=== PATIENT | female | born 1950 | race Caucasian/White ===

== ENCOUNTER 2021-12-23 12:30 | Emergency (ER) | payer MEDICARE ==
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
[2021-12-23] MEDS ORDERED: Zofran 4 MG/2 ML VIAL IV ONE (12:58)
[2021-12-23] MEDS ORDERED: MORPHINE SULFATE 4 MG INJ IV ONE (12:58)
[2021-12-23] MEDS ORDERED: MORPHINE SULFATE 4 MG INJ ONE (13:26)
[2021-12-23] MEDS ORDERED: Zofran 4 MG/2 ML VIAL ONE (13:26)
[2021-12-23 13:41] LABS: Absolute Neutrophil Ct (ANC) 4.68 x10^3/uL (1.4-6.9); Basophil (Absolute #) 0.02 x10^3/uL (0-0.4); Eosinophil % 0.3 % (0.00-5.0); Eosinophil (Absolute #) 0.02 x10^3/uL (0-0.5); Hematocrit 41.8 % (35-47); Hemoglobin 13.7 g/dL (12.0-16.0); Lymphocyte (Absolute #) 1.45 x10^3/uL (1.0-4.6); Lymphocytes % 21.9 % (24.0-44.0); Mean Cell Volume 84.8 fL (78-100); Mean Corpuscular Hemoglobin 27.8 pg (26-32); Mean Corpuscular Hgb Concent. 32.8 g/dL (32-36); Mean Platelet Volume 8.7 fL (7.5-11.0); Monocyte (Absolute #) 0.41 x10^3/uL (0.0-1.3); Monocytes % 6.2 % (0.0-12.0); Neutrophil % 70.8 % (36.0-66.0); Platelet Count 205 x10^3/uL (150-450); Red Blood Count 4.93 x10^6/uL (4.1-5.4); Red Cell Distribution Width 13.2 % (11.5-14.0); White Blood Count 6.6 x10^3/uL (4.0-10.5)
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
[2021-12-23 14:07] LABS: ALBUMIN 4.3 g/dL (3.5-5.0); ALKALINE PHOSPHATASE 155 U/L (38-126); AMYLASE 71 U/L (30-110); ANION GAP 11.2 MEQ/L (5-15); BLOOD UREA NITROGEN 16 mg/dL (7-17); CHLORIDE 105 mmol/L (98-107); Calcium 10.8 mg/dL (8.4-10.2); Carbon Dioxide 27 mmol/L (22-30); Creatinine 1 0.76 mg/dL (0.52-1.04); EST GLOMERULAR FILTRATION RATE > 60.0 ML/MIN; Glucose 113 mg/dL (74-106); LIPASE 47 U/L (23-300); Potassium 4.2 mmol/L (3.5-5.1); SGOT/AST 20 U/L (14-36); SGPT/ALT 16 U/L (0-35); SODIUM 138 mmol/L (137-145); Total Protein 7.2 g/dL (6.3-8.2)
[2021-12-23 14:18] VITALS: PULSE 89
[2021-12-23 15:00] VITALS: BP 144/84; O2SAT 96
== END 2021-12-23 15:00 | disposition home or self-care (01) ==
LOC: ED 12:30
DX: M48.54XA Collapsed vertebra, not elsewhere classified, thoracic region, initial encounter for fracture (principal); E04.2 Nontoxic multinodular goiter; R07.9 Chest pain, unspecified; R10.9 Unspecified abdominal pain; R05.9 Cough, unspecified; Z79.891 Long term (current) use of opiate analgesic
CPT/HCPCS: 36000; 36415; 71250; 74176; 80053; 82150; 83690; 84484; 85025; 96374; 96375; 99284; J2270; J2405

== ENCOUNTER 2021-12-28 18:30 | Emergency (ER) | payer MEDICARE ==
[2021-12-28] MEDS ORDERED: MORPHINE SULFATE 4 MG INJ IV ONE (18:38)
[2021-12-28] MEDS ORDERED: MORPHINE SULFATE 4 MG INJ ONE (18:40)
--- NOTE | 2021-12-28 18:40 | ERPHSYRPT ---
- History of Present Illness Time Seen by Provider: 12/28/21 18:40 Source: patient Exam Limitations: no limitations Physician History: Patient is a 71-year-old female presents to our ED for evaluation of pain to her lower thoracic spine. Patient was in our ED approximately 5 days ago. She was worked up. Work-up revealed a T11 acute compression fracture. Patient was advised to obtain a brace however patient states she was unable to obtain her brace since then her pain has gotten somewhat worse. No neurological complaints. Patient has Percocet which she has been taking. Patient was also diagnosed with a 3.3 x 3.0 cm AAA. Patient has no abdominal pain. Physical exam reveals no pulsatile masses. Normal blood pressure. Bilateral radial pulses are palpable and equal. Bilateral dorsalis pedis pulses are palpable and equal. Patient has point tenderness at the T11 vertebrae which reproduces patient's symptoms. No chest pain. No shortness of breath. No nausea vomiting or diaphoresis. No diarrhea. No rash. Patient voices no other complaints or concerns at this time. Portions of this note were created with voice recognition technology. There may be grammatical, spelling, punctuation or sound alike errors Timing/Duration: today Severity: moderate Modifying Factors: Improves With: nothing Associated Symptoms: denies symptoms Allergies/Adverse Reactions: ibuprofen Allergy (Verified 12/28/21 18:36) Penicillins Allergy (Verified 12/28/21 18:36) Sulfa (Sulfonamide Antibiotics) Allergy (Verified 12/28/21 18:36) Home Medications: Acetaminophen [Tylenol Arthritis] 650 mg PO TID 12/23/21 [History] Hx Tetanus, Diphtheria Vaccination/Date Given: Yes Hx Influenza Vaccination/Date Given: No Hx Pneumococcal Vaccination/Date Given: No Travel Risk - Vaccine Status Have you recieved a Covid-19 vaccination: No - Review of Systems Constitutional: No Symptoms, No Fever, No Chills Eyes: No Symptoms Ears, Nose, & Throat: No Symptoms Respiratory: No Symptoms, No Cough, No Dyspnea Cardiac: No Symptoms, No Chest Pain, No Edema, No Syncope Abdominal/Gastrointestinal: No Symptoms, No Abdominal Pain, No Nausea, No Vomiting, No Diarrhea Genitourinary Symptoms: No Symptoms, No Dysuria Musculoskeletal: No Symptoms, No Back Pain, No Neck Pain Skin: No Symptoms, No Rash Neurological: No Symptoms, No Dizziness, No Focal Weakness, No Sensory Changes Psychological: No Symptoms Endocrine: No Symptoms Hematologic/Lymphatic: No Symptoms Immunological/Allergic: No Symptoms All Other Systems: Reviewed and Negative - Past Medical History Pertinent Past Medical History: Yes Neurological History: Epilepsy, Seizures ENT History: Cataracts Cardiac History: No Pertinent History Respiratory History: Pneumonia Endocrine Medical History: Other Musculoskeletal History: Arthritis GI Medical History: Gallbladder Disease History: Renal Disease Psycho-Social History: Depression Female Reproductive Disorders: No Pertinent History Other Medical History: thyroid disease, unsure what the kidney disease is but used to see a director of web marketing that she no longer sees - Past Surgical History Past Surgical History: Yes Neuro Surgical History: No Pertinent History Cardiac: No Pertinent History Respiratory: No Pertinent History Gastrointestinal: Cholecystectomy Genitourinary: No Pertinent History Musculoskeletal: No Pertinent History Female Surgical History: Hysterectomy, Tubal Ligation - Social History Smoking Status: Current every day smoker How long have you smoked: 60 years Exposure to second hand smoke: Yes Drug Use: none Patient Lives Alone: No - Nursing Vital Signs Nursing Vital Signs: Initial Vital Signs Temperature 97.8 F 12/28/21 18:37 Pulse Rate 75 12/28/21 18:37 Respiratory Rate 18 12/28/21 18:37 Blood Pressure 161/86 12/28/21 18:37 O2 Sat by Pulse Oximetry 99 12/28/21 18:37 Pain Scale Pain Intensity 8 - Physical Exam General Appearance: no apparent distress, alert Eye Exam: PERRL/EOMI, eyes nml inspection Ears, Nose, Throat Exam: normal ENT inspection, TMs normal, pharynx normal, moist mucous membranes Neck Exam: normal inspection, non-tender, supple, full range of motion Respiratory Exam: normal breath sounds, lungs clear, airway intact, No respiratory distress Cardiovascular Exam: regular rate/rhythm, normal heart sounds, normal peripheral pulses Gastrointestinal/Abdomen Exam: soft, normal bowel sounds, No tenderness, No mass Back Exam: normal inspection, normal range of motion, other (Tenderness palpation at T11. This reproduces patient's symptoms. Overlying soft tissue intact. No signs of trauma.), No CVA tenderness, No vertebral tenderness Extremity Exam: normal inspection, normal range of motion, pelvis stable Neurologic Exam: alert, oriented x 3, cooperative, normal mood/affect, nml cerebellar function, nml station & gait, sensation nml, No motor deficits Skin Exam: normal color, warm, dry, No rash Lymphatic Exam: No adenopathy SpO2 Interpretation: normal SpO2: 98 O2 Delivery: Room Air - Course Nursing assessment & vital signs reviewed: Yes Ordered Tests: Medication Summary Discontinued Medications Generic Name Dose Route Start Last Admin Trade Name Jai PRN Reason Stop Dose Admin Morphine Sulfate 4 mg 12/28/21 18:38 12/28/21 18:43 Morphine Sulfate 4 Mg/Ml Injection IV 12/28/21 18:39 Not Given STAT ONE Morphine Sulfate Confirm 12/28/21 18:40 Morphine Sulfate 4 Mg/Ml Injection Administered 12/28/21 18:41 Dose 4 mg .ROUTE .STK-MED ONE Morphine Sulfate 4 mg 12/28/21 18:41 12/28/21 18:44 Morphine Sulfate 4 Mg/Ml Injection IM 12/28/21 18:42 4 mg STAT ONE Administration - Progress Progress: improved Progress Note: Patient reassessed. Pain significantly improved. No indication to repeat imaging studies. Patient will be referred to Dr. [place] spine surgeon in [place]. Patient has no neurologic complaints. No interval falls or trauma. 12/28/21 18:44 Pain significantly improved. Patient requesting discharge. Patient agrees to follow-up with orthopedic surgeon tomorrow for reevaluation. Patient has no neurological complaints or physical exam findings. Portions of this note were created with voice recognition technology. There may be grammatical, spelling, punctuation or sound alike errors 12/28/21 19:14 Counseled pt/family regarding: diagnosis, need for follow-up - Departure Departure Disposition: Home Clinical Impression: T11 vertebral fracture Condition: Stable Critical Care Time: No Referrals: KATELYNN BRADLEY PA [Primary Care Provider] - Follow up/PCP as directed Instructions: Low Back Pain in Adults Additional Instructions: Discharge/Care Plan KERRI TABARES was seen on 12/28/21 in the Emergency Room. The patient was counseled regarding Diagnosis,Lab results, Imaging studies, need for follow up and when to return to the Emergency Room. Prescriptions given: Discharge Note I have spoken with the patient and/or caregivers. I have explained the patient's condition, diagnosis and treatment plan based on the information available to me at this time. I have answered the patient's and/or caregiver's questions and addressed any concerns. The patient and/or caregivers have as good understanding of the patient's diagnosis, condition and treatment plan as can be expected at this point. The vital signs have been stable. The patient's condition is stable and appropriate for discharge from the emergency department. The patient will pursue further outpatient evaluation with the primary care physician or other designated or consulting physician as outlined in the discharge instructions. The patient and/or caregivers are agreeable to this plan of care and follow-up instructions have been explained in detail. The patient and/or caregivers have received these instruction. The patient/and or caregivers are aware that any significant change in condition or worsening of symptoms should prompt an immediate return to this or the closest emergency department or call 911.
[2021-12-28] MEDS ORDERED: MORPHINE SULFATE 4 MG INJ IM ONE (18:41)
[2021-12-28 18:43] VITALS: BP 161/86; PULSE 75
[2021-12-28 19:17] VITALS: O2SAT 98
== END 2021-12-28 19:16 | disposition home or self-care (01) ==
LOC: ED 18:30
DX: S22.089D Unspecified fracture of T11-T12 vertebra, subsequent encounter for fracture with routine healing (principal); M54.6 Pain in thoracic spine; Z72.0 Tobacco use; Z28.310 Unvaccinated for COVID-19
CPT/HCPCS: 96372; 99282; J2270

== ENCOUNTER 2022-03-05 16:40 | Emergency (ER) | payer MEDICARE ==
[2022-03-05] MEDS ORDERED: TYLENOL EXTRA STRENGTH 500 MG PO STA (17:57)
--- NOTE | 2022-03-05 18:01 | ERPHSYRPT ---
- History of Present Illness Time Seen by Provider: 03/05/22 17:01 Source: patient Exam Limitations: no limitations Patient Subjective Stated Complaint: Pt was in the back compartment of a small SUV and fell out on her back and hit the back of her head, she wears a hard wrap around back brace and so she states that her back wasn't injured but only her head Triage Nursing Assessment: Pt brought to the ER by her daughter, hypertensive, rates pain in her head as 8/10, bruising to the top of her head and some old yellow bruising as well, denies additional back pain, denies any other injuries, daughter states that it was about a five foot fall if she fell from inside the vehicle and pt doesn't remember if she was still in the vehicle or if she had gotten out and had just fallen backwards Physician History: 71 years old female with history of chronic back pain with some compression fracture T11 per daughter wearing back brace, was trying to sit on the back bumper of small SUV which she did not realize it was high enough that she could not touch her feet on the ground and lost balance, all leading to fall and hit her head. According to daughter she lost consciousness refused seconds, came back with no postictal and no seizure-like activities noticed. She has a small goose egg on the occipital parietal area and complaining of dull aching to sharp moderate headache without any difficulty movements of neck and back pain is not any worse than usual. Denies any focal numbness tingling weakness. No diffic ulty speech, visual disturbance. Denies any chest pain palpitations or shortness of breath. Occurred: just prior to arrival Reason for Fall: lost balance Injuries/Pain Location: head Loss of Consciousness: brief (seconds) Quality: sharpness Severity of Pain-Max: moderate Severity of Pain-Current: moderate Associated Symptoms (Fall): back pain, headache, No chest pain, No dizziness, No extremity injury, No lightheadedness, No nausea, No neck pain, No ringing in ears, No seizures, No shortness of breath, No slurred speech, No vomiting, No vision changes Allergies/Adverse Reactions: ibuprofen Allergy (Verified 03/05/22 17:02) Penicillins Allergy (Verified 03/05/22 17:02) Sulfa (Sulfonamide Antibiotics) Allergy (Verified 03/05/22 17:02) Home Medications: No Reportable Medications [No Reported Medications] 03/05/22 [History] Hx Tetanus, Diphtheria Vaccination/Date Given: Yes Hx Influenza Vaccination/Date Given: No Hx Pneumococcal Vaccination/Date Given: No Travel Risk - International Travel Have you traveled outside of the country in past 3 weeks: No - Coronavirus Screening Are you exhibiting any of the following symptoms?: No - Vaccine Status Have you recieved a Covid-19 vaccination: No - Review of Systems Constitutional: No Symptoms Eyes: No Symptoms Ears, Nose, & Throat: No Symptoms Respiratory: No Symptoms Cardiac: No Symptoms Abdominal/Gastrointestinal: No Symptoms Genitourinary Symptoms: No Symptoms Musculoskeletal: Back Pain, Fall Skin: No Symptoms Neurological: Headache Psychological: No Symptoms Hematologic/Lymphatic: No Symptoms Immunological/Allergic: No Symptoms - Past Medical History Pertinent Past Medical History: Yes Neurological History: Epilepsy, Seizures ENT History: Cataracts Cardiac History: No Pertinent History Respiratory History: Pneumonia Endocrine Medical History: Other Musculoskeletal History: Arthritis GI Medical History: Gallbladder Disease History: Renal Disease Psycho-Social History: Depression Female Reproductive Disorders: No Pertinent History Other Medical History: thyroid disease, unsure what the kidney disease is but used to see a steamer tender that she no longer sees - Past Surgical History Past Surgical History: Yes Neuro Surgical History: No Pertinent History Cardiac: No Pertinent History Respiratory: No Pertinent History Gastrointestinal: Cholecystectomy Genitourinary: No Pertinent History Musculoskeletal: No Pertinent History Female Surgical History: Hysterectomy, Tubal Ligation - Social History Smoking Status: Current every day smoker How long have you smoked: 60 years Exposure to second hand smoke: Yes Drug Use: none Patient Lives Alone: No - Nursing Vital Signs Nursing Vital Signs: Initial Vital Signs Temperature 97.2 F 03/05/22 16:51 Pulse Rate 98 H 03/05/22 16:51 Blood Pressure 161/83 03/05/22 16:51 O2 Sat by Pulse Oximetry 96 03/05/22 16:51 Pain Scale Pain Intensity 4 - Red Bud Coma Score Best Eye Response (Red Bud): (4) open spontaneously Best Verbal Response (Benita): (5) oriented Best Motor Response ([place]): (6) obeys commands Red Bud Total: 15 - Physical Exam General Appearance: no apparent distress, alert Head Injury: contusions, swelling, tenderness (Occipitoparietal area 3 x 2 cm goose egg with no step in deformity.) Eye Exam: PERRL/EOMI, eyes nml inspection ENT Exam: airway nml, No evidence of ENT injury Neck Exam: supple, trachea midline, full range of motion, normal alignment, normal inspection Respiratory/Chest Exam: normal breath sounds, respiratory distress, No chest tenderness Cardiovascular Exam: normal heart sounds, regular rate/rhythm Gastrointestinal Exam: soft, normal bowel sounds Back Exam: vertebral tenderness, decreased range of motion, muscle spasm, point tenderness, other (Scoliosis) Extremity Exam: normal inspection, normal range of motion Neurologic Exam: alert, oriented x 3, cooperative, mattress finisher II-XII nml as tested Skin Exam: normal color SpO2 Interpretation: normal SpO2: 96 O2 Delivery: Room Air - Course EKG Interpreted by Me: RATE ([id number]), Sinus Rhythm, NORMAL AXIS, NORMAL INTERVALS, Q-wave Ordered Tests: Active Orders 24 hr Category Date Time Status EKG-ER Only STAT Care 03/05/22 17:56 Active CERVICAL SPINE WO CONTRAST [CT] Stat Exams 03/05/22 19:55 Taken CHEST 1 VIEW (PORTABLE) Stat Exams 03/05/22 19:24 Taken HEAD WITHOUT CONTRAST [CT] Stat Exams 03/05/22 18:52 Taken LUMBAR SPINE W/O [CT] Stat Exams 03/05/22 17:11 Taken CBC W DIFF Stat Lab 03/05/22 18:25 Completed CK-Creatinine Phosphokinase Stat Lab 03/05/22 18:25 Completed CMP Stat Lab 03/05/22 18:25 Completed TROPONIN Q4H Lab 03/06/22 02:00 Ordered TROPONIN Q4H Lab 03/05/22 18:25 Completed TROPONIN Q4H Lab 03/05/22 22:00 Ordered Medication Summary Discontinued Medications Generic Name Dose Route Start Last Admin Trade Name Jai PRN Reason Stop Dose Admin Acetaminophen 500 mg 03/05/22 17:57 03/05/22 18:39 Acetaminophen 500 Mg Tablet PO 03/05/22 17:58 500 mg STAT STA Administration Acetaminophen Confirm 03/05/22 18:39 Acetaminophen 500 Mg Tablet Administered 03/05/22 18:40 Dose 500 mg .ROUTE .[facility] Lab/Rad Data: Laboratory Result Diagrams 03/05/22 18:25 03/05/22 18:25 Laboratory Results 03/05/22 03/05/22 03/05/22 Range/Units 18:25 18:25 18:25 WBC 6.7 (4.0-10.5) x10^3/uL RBC 5.14 (4.1-5.4) x10^6/uL Hgb 13.9 (12.0-16.0) g/dL Hct 43.0 (35-47) % MCV 83.7 (78-100) fL MCH 27.0 (26-32) pg MCHC 32.3 (32-36) g/dL RDW 12.6 (11.5-14.0) % Plt Count 205 (150-450) x10^3/uL MPV 9.0 (7.5-11.0) fL Gran % 58.8 (36.0-66.0) % Immature Gran % (Auto) 0.1 (0.00-0.4) % Nucleat RBC Rel Count 0.0 (0.00-0.1) % Eos # (Auto) 0.03 (0-0.5) x10^3/uL Immature Gran # (Auto) 0.01 (0.00-0.03) x10^3u/L Absolute Lymphs (auto) 2.30 (1.0-4.6) x10^3/uL Absolute Monos (auto) 0.40 (0.0-1.3) x10^3/uL Absolute Nucleated RBC 0.00 (0.00-0.01) x10^3u/L Lymphocytes % 34.3 (24.0-44.0) % Monocytes % 6.0 (0.0-12.0) % Eosinophils % 0.4 (0.00-5.0) % Basophils % 0.4 (0.0-0.4) % Absolute Granulocytes 3.94 (1.4-6.9) x10^3/uL Basophils # 0.03 (0-0.4) x10^3/uL Sodium 137 (137-145) mmol/L Potassium 3.4 L (3.5-5.1) mmol/L Chloride 104 (98-107) mmol/L Carbon Dioxide 31 H (22-30) mmol/L Anion Gap 5.2 (5-15) MEQ/L BUN 16 (7-17) mg/dL Creatinine 0.70 (0.52-1.04) mg/dL Estimated GFR > 60.0 ML/MIN Glucose 105 (74-106) mg/dL Calcium 10.2 (8.4-10.2) mg/dL Total Bilirubin 0.50 (0.2-1.3) mg/dL AST 24 (14-36) U/L ALT 17 (0-35) U/L Alkaline Phosphatase 165 H (38-126) U/L Creatine Kinase 34 (30-135) U/L Troponin I < 0.012 (0.000-0.034) ng/mL Serum Total Protein 7.0 (6.3-8.2) g/dL Albumin 3.9 (3.5-5.0) g/dL - Progress Progress: improved Progress Note: 03/05/22 20:27 She is given Tylenol for symptomatic relief. It was a mechanical fall, obtain CT head, cervical spine, lumbar spine and negative for any acute trauma related findings. Patient is essentially nonfocal neuro exam grossly. Not in any distress. Lungs bilateral clear and no acute findings on chest x-ray reviewed by me, official report is pending. No abdominal tenderness at all. EKG normal sinus rhythm with negative troponin and grossly unremarkable chemistries. It was a mechanical fall, do not think needs any further work-up and patient is stable for discharge with outpatient follow-up. Since patient has loss of consciousness, have some element of concussion, recommended staying with responsible person for next 24 to 48 hours with frequent neurochecks and outpa tient primary care follow-up. Signs symptoms of worsening needing return to ER which he seems understanding 03/05/22 20:28 Counseled pt/family regarding: lab results, diagnosis, need for follow-up, rad results - Departure Departure Disposition: Home Clinical Impression: Concussion, Scalp contusion, Fall Condition: Stable Critical Care Time: No Referrals: KATELYNN BRADLEY PA [Primary Care Provider] - Follow up/PCP as directed (In 2 days for reevaluation) Instructions: Preventing Falls in Older Adults, Head Injury Observation (DC), Concussion, Adult (DC) Additional Instructions: Take Tylenol as needed. Use cane/walker for ambulation all the time to avoid a fall. Stay with responsible person with frequent neurochecks for 24 to 48 hours. Follow head injury/concussion instructions and return to ER for any worsening. Follow-up with primary care for reevaluation early next week.
[2022-03-05 18:33] LABS: Absolute Neutrophil Ct (ANC) 3.94 x10^3/uL (1.4-6.9); Basophil (Absolute #) 0.03 x10^3/uL (0-0.4); Eosinophil % 0.4 % (0.00-5.0); Eosinophil (Absolute #) 0.03 x10^3/uL (0-0.5); Hemoglobin 13.9 g/dL (12.0-16.0); Lymphocytes % 34.3 % (24.0-44.0); Mean Cell Volume 83.7 fL (78-100); Mean Corpuscular Hgb Concent. 32.3 g/dL (32-36); Neutrophil % 58.8 % (36.0-66.0); Platelet Count 205 x10^3/uL (150-450); Red Blood Count 5.14 x10^6/uL (4.1-5.4); Red Cell Distribution Width 12.6 % (11.5-14.0); White Blood Count 6.7 x10^3/uL (4.0-10.5)
[2022-03-05] MEDS ORDERED: TYLENOL EXTRA STRENGTH 500 MG ONE (18:39)
[2022-03-05 18:52] LABS: ALBUMIN 3.9 g/dL (3.5-5.0); ALKALINE PHOSPHATASE 165 U/L (38-126); ANION GAP 5.2 MEQ/L (5-15); BLOOD UREA NITROGEN 16 mg/dL (7-17); CHLORIDE 104 mmol/L (98-107); CK-Creatinine Phosphokinase 34 U/L (30-135); Calcium 10.2 mg/dL (8.4-10.2); Carbon Dioxide 31 mmol/L (22-30); EST GLOMERULAR FILTRATION RATE > 60.0 ML/MIN; Glucose 105 mg/dL (74-106); Potassium 3.4 mmol/L (3.5-5.1); SGOT/AST 24 U/L (14-36); SGPT/ALT 17 U/L (0-35); SODIUM 137 mmol/L (137-145)
[2022-03-05 19:12] VITALS: O2SAT 96
--- NOTE | 2022-03-05 20:40 | XRAY ---
Indication: Posterior head pain following fall. Multiple contiguous axial images obtained through the head without contrast. Comparison: January 28, 2007 Again age-appropriate global atrophy. No acute intracranial hemorrhage, abnormal extra-axial fluid collection, or mass effect. Fourth ventricle is midline without hydrocephalus. Silva-white matter differentiation preserved. Bony calvarium intact.. Visualized paranasal sinuses and mastoid air cells are clear. Impression: Continued negative CT head without contrast exam. Comment: Preliminary interpretation made by [facility]. No critical discrepancy.
[2022-03-05 20:42] VITALS: BP 144/67; PULSE 82
--- NOTE | 2022-03-05 20:44 | XRAY ---
Indication: Low back pain following fall. Multiple contiguous axial images obtained through the lumbar spine. Sagittal and coronal reformatted images obtained. Comparison: CT abdomen/pelvis December 23, 2021. Osseous structures remain demineralized. T11 segment now demonstrates remote superior endplate fracture with 50-75% height loss but no spinal canal or foraminal encroachment. Stable L1-L2 and L5-S1 degenerative disc disease with vacuum disc phenomena. New T10-T12 degenerative vacuum disc phenomena. Facets are symmetric again with moderate bilateral L4-S1 degenerative facet hypertrophy. Sagittal and coronal reformatted images again demonstrates normal lumbar lordosis with stable mild dextroscoliosis. Stable L1-L2 and L5-S1 disc space narrowing. No acute compression fracture or subluxation. Visualized noncontrasted soft tissues again demonstrates moderate scattered aortoiliac calcifications with 3.3 cm distal AAA. Again incidental pulmonary emphysema, cholecystectomy clips, and splenic calcified granulomas. Impression: 1. Remote appearing T1 fracture. No acute fracture/subluxation. 2. Again osteopenia, multilevel degenerative spondylosis, dextroscoliosis, arteriosclerotic disease with distal AAA, pulmonary emphysema, and old granulomatous disease. Comment: Preliminary interpretation made by [facility]. No critical discrepancy.
--- NOTE | 2022-03-05 20:48 | XRAY ---
Indication: Status post fall. Comparison: None Portable chest hyperinflated and clear. Heart not enlarged with incidental hilar calcified nodes. Bony thorax intact with osteopenia, degenerative changes, and mild levoscoliosis. Impression: Nonacute hyperinflated chest with chronic features.
--- NOTE | 2022-03-05 20:59 | XRAY ---
Indication: Pain. Status post fall. Trauma. Multiple contiguous axial images obtained through the cervical spine. Sagittal and coronal reformatted images obtained. Comparison: None Osseous structures are demineralized. Axial images negative for acute fracture, suspicious bony lesions, or spinal canal stenosis. Minimal C4-C6 degenerative endplate spurring and mild/moderate multilevel bilateral degenerative facet hypertrophy. Sagittal and coronal reformatted images demonstrates normal alignment with C5-C6 disc space narrowing. No acute compression fracture, subluxation, or jumped facet. Normal appearing craniocervical junction. Visualized noncontrasted soft tissues demonstrates incompletely visualized marked heterogeneous thyromegaly with scattered micro-/microcalcifications. Also diffuse paraseptal pulmonary emphysema. Impression: 1. Negative acute fracture/subluxation. 2. Osteopenia and multilevel degenerative changes. 3. Incompletely visualized marked heterogeneous thyromegaly. 4. Biapical pulmonary emphysema. Comment: Preliminary interpretation made by [facility]. No critical discrepancy.
== END 2022-03-05 20:45 | disposition home or self-care (01) ==
LOC: ED 16:40
DX: S06.0X1A Concussion with loss of consciousness of 30 minutes or less, initial encounter (principal); S00.03XA Contusion of scalp, initial encounter; W17.89XA Other fall from one level to another, initial encounter; Z28.310 Unvaccinated for COVID-19; Z72.0 Tobacco use
CPT/HCPCS: 36415; 70450; 71045; 72125; 72131; 80053; 82550; 84484; 85025; 93005; 99284; A9270-GY

== ENCOUNTER 2023-03-15 19:22 | Emergency (ER) | payer MEDICARE ==
--- NOTE | 2023-03-15 19:35 | ERPHSYRPT ---
- History of Present Illness Time Seen by Provider: 03/15/23 19:35 Source: patient, family Exam Limitations: no limitations Physician History: This is a 72-year-old white female patient of Dr. Davis who tripped over her oxygen tank fell onto her left chest. She had excruciating left rib pain and was seen at [facility] emergency department that same evening on 03/12/2023. Per patient's daughter report, who provided independent, additional history secondary to the patient being hard of hearing and not recalling all of the details of the event and that evening in the emergency room, the patient has been in pain for the same level as the day she fell. Patient's room air oxygen saturation was 93%. Patient has oxygen dependent COPD but the oxygen tank ran out prior to her arriving to our emergency department. She does not appear to be in distress. Patient has a history of hypothyroidism, depression, arthritis and chronic renal disease. He has no abdominal pain. She did not suffer any extremity injury. There was not an injury to her head and neck. Occurred: days ago (3) Reason for Fall: tripped (Over an oxygen tank) Injuries/Pain Location: chest (Left lateral chest/ribs) Loss of Consciousness: no loss of consciousness Quality: sharpness, stabbing Severity of Pain-Max: moderate Severity of Pain-Current: moderate Modifying Factors: Improves With: movement Associated Symptoms (Fall): chest pain (Left lateral ribs), No extremity injury, No headache, No neck pain, No shortness of breath Allergies/Adverse Reactions: Penicillins Allergy (Severe, Verified 03/15/23 19:24) Shortness of Breath Sulfa (Sulfonamide Antibiotics) Allergy (Severe, Verified 03/15/23 19:24) Shortness of Breath ibuprofen Allergy (Intermediate, Verified 03/15/23 19:24) Hives naproxen Allergy (Intermediate, Verified 03/15/23 19:24) Hives Home Medications: Escitalopram Oxalate [Lexapro] 1 tab PO DAILY 11/26/22 [History] Levothyroxine Sodium 100 Mcg [Synthroid 100 Mcg] 1 tab PO DAILY 11/26/22 [History] calcitrioL [Calcitriol] 1 tab PO BID 11/26/22 [History] Hydrocodone/Acetaminophen [Hydrocodone-Acetamin 5-325 mg] 1 tab PO Q6HPRN PRN MDD 4 03/15/23 [History] Tiotropium Br/Olodaterol HCl [Stiolto Respimat Inhal [place]] 2 puff IH BID 03/15/23 [History] Hx Tetanus, Diphtheria Vaccination/Date Given: Yes Hx Influenza Vaccination/Date Given: No Hx Pneumococcal Vaccination/Date Given: No Travel Risk - International Travel Have you traveled outside of the country in past 3 weeks: No - Coronavirus Screening Are you exhibiting any of the following symptoms?: No Close contact with a COVID-19 positive Pt in past 14-21 Days: No - Vaccine Status Have you recieved a Covid-19 vaccination: No - Review of Systems Constitutional: No Symptoms Eyes: No Symptoms Ears, Nose, & Throat: No Symptoms Respiratory: No Symptoms Cardiac: Chest Pain (Left lateral ribs to palpation) Abdominal/Gastrointestinal: No Symptoms Genitourinary Symptoms: No Symptoms Musculoskeletal: No Symptoms Skin: No Symptoms Neurological: No Symptoms Psychological: No Symptoms Endocrine: No Symptoms Hematologic/Lymphatic: No Symptoms Immunological/Allergic: No Symptoms All Other Systems: Reviewed and Negative - Past Medical History Pertinent Past Medical History: Yes Neurological History: Epilepsy, Seizures ENT History: Cataracts Cardiac History: No Pertinent History Respiratory History: COPD, Pneumonia Endocrine Medical History: Other Musculoskeletal History: Arthritis GI Medical History: Gallbladder Disease History: Renal Disease Psycho-Social History: Anxiety, Depression Female Reproductive Disorders: No Pertinent History Other Medical History: thyroid disease - Past Surgical History Past Surgical History: Yes Neuro Surgical History: No Pertinent History Cardiac: No Pertinent History Respiratory: No Pertinent History Gastrointestinal: Cholecystectomy Genitourinary: No Pertinent History Musculoskeletal: No Pertinent History Female Surgical History: Hysterectomy, Tubal Ligation Other Surgical History: thyroidectomy - Social History Smoking Status: Former smoker How long have you smoked: 60 years Exposure to second hand smoke: Yes Drug Use: none Patient Lives Alone: No - Nursing Vital Signs Nursing Vital Signs: Initial Vital Signs Temperature 97.3 F 03/15/23 19:23 Pulse Rate 73 03/15/23 19:23 Respiratory Rate 28 H 03/15/23 19:23 Blood Pressure 140/65 03/15/23 19:23 O2 Sat by Pulse Oximetry 93 L 03/15/23 19:23 Pain Scale Pain Intensity 9 - Deshler Coma Score Best Eye Response (Deshler): (4) open spontaneously Best Verbal Response ([place]hler): (5) oriented Best Motor Response ([place]hler): (6) obeys commands Benita Total: 15 - Physical Exam General Appearance: no apparent distress, alert, anxiety Head Injury: no evidence of injury Eye Exam: PERRL/EOMI, eyes nml inspection ENT Exam: airway nml, nml ext.inspection Neck Exam: supple, trachea midline, full range of motion, normal alignment, normal inspection Respiratory/Chest Exam: chest tenderness, normal breath sounds, rib tenderness (Left lateral ribs), No respiratory distress, No ecchymosis, No crepitus, No decreased breath sounds Cardiovascular Exam: normal heart sounds, regular rate/rhythm Gastrointestinal Exam: soft, normal bowel sounds, No tenderness Rectal Exam: not done Back Exam: normal inspection, normal range of motion, No CVA tenderness, No vertebral tenderness Extremity Exam: normal inspection, normal range of motion, pelvis stable Neurologic Exam: alert, oriented x 3, cooperative, design technology teacher II-XII nml as tested, normal mood/affect Skin Exam: normal color, warm, dry SpO2 Interpretation: normal O2 Delivery: Room Air - Course Nursing assessment & vital signs reviewed: Yes EKG Interpreted by Me: RATE (72), Sinus Rhythm, NORMAL AXIS, NORMAL INTERVALS, Right Bundle Branch Block, Other (No acute ischemic changes on today's twelve- lead EKG) Ordered Tests: Active Orders 24 hr Category Date Time Status EKG-ER Only STAT Care 03/15/23 19:33 Active CHEST WITHOUT CONTRAST [CT] Stat Exams 03/15/23 19:33 Taken TROPONIN Q4H Lab 03/15/23 20:05 Completed TROPONIN Q4H Lab 03/15/23 23:45 Ordered TROPONIN Q4H Lab 03/16/23 03:45 Ordered Medication Summary Discontinued Medications Generic Name Dose Route Start Last Admin Trade Name Freq PRN Reason Stop Dose Admin Methylprednisolone Sodium 0 mg 03/15/23 21:28 Succinate 125 mg/ Sterile IM 03/15/23 21:29 Water 2 ml STAT ONE Morphine Sulfate 2 mg 03/15/23 21:28 Morphine Sulfate 2 Mg/Ml Inj IM 03/15/23 21:29 STAT ONE Ondansetron HCl 4 mg 03/15/23 21:28 Zofran 4 Mg/Udtablet Orally Disintegrating PO 03/15/23 21:29 STAT ONE Lab/Rad Data: Laboratory Results 03/15/23 Range/Units 20:05 Troponin I < 0.012 (0.000-0.034) ng/mL - Progress Progress: improved, re-examined Progress Note: 03/15/23 21:32 This patient's medical issue is 1 of low complexity. The level complexity in the workup performed is based on review of the patient's past medical history, review the patient's medication list, review the patient drug allergy list, history present illness and physical findings on examination. The workup in this patient includes twelve-lead EKG, troponin level, CT scan of the chest. I interpreted the laboratory data. The troponin is normal. CT scan of the chest without contrast was performed and the radiologist interpreted this study. There is worsening remote T11 fracture. There is a new right lower lobe pneumonia. Counseled pt/family regarding: lab results, diagnosis, need for follow-up, rad results Medical Desision Making - Independent Historian Additional History obtained from: Family - Diagnostic Testing Diagnostic test were ordered, analyzed, and reviewed by me: Yes Radiological Interpretation: Reviewed by me, Teleradiologist Report - Risk of complications The pt has a mod risk of morbidity or mortality based on: Need for prescription drug management - Departure Departure Disposition: Home Clinical Impression: Right lower lobe pneumonia Condition: Stable Critical Care Time: No Referrals: BALJEET CHAVES MD [Primary Care Provider] - Follow up/PCP as directed Additional Instructions: Take your antibiotics and other medications as prescribed. Use your oxygen as prescribed. Call your primary care provider tomorrow, 03/16/2023 to make arranges for further evaluation management. Prescriptions: Oxycodone HCl/Acetaminophen [Percocet 5-325 mg Tablet] 1 each PO Q12H PRN PRN #6 tablet MDD 2 PRN Reason: Moderate To Severe Pain Cyclobenzaprine HCl 10 mg [Cyclobenzaprine 10 MG] 10 mg PO BID #10 tablet Levofloxacin [Levaquin 500 MG Tablet] 500 mg PO DAILY #7 tablet
[2023-03-15 20:06] VITALS: TEMP 97.3
[2023-03-15 21:16] VITALS: BP 157/91
[2023-03-15] MEDS ORDERED: ZOFRAN ODT 4 MG PO ONE (21:28)
[2023-03-15] MEDS ORDERED: MORPHINE SULFATE 2 MG INJ IM ONE (21:28)
[2023-03-15] MEDS ORDERED: solu-MEDROL 125 MG, Sterile H2O 10 ml 2 ML IM ONE ×2 (21:28)
[2023-03-15] MEDS ORDERED: Levofloxacin 500 MG Tablet PO ONE (21:31)
[2023-03-15] MEDS ORDERED: ZOFRAN ODT 4 MG ONE (21:33)
[2023-03-15] MEDS ORDERED: MORPHINE SULFATE 2 MG INJ ONE (21:33)
[2023-03-15] MEDS ORDERED: Sterile H2O 10 ml IJ ONE (21:33)
[2023-03-15] MEDS ORDERED: solu-MEDROL ONE (21:33)
[2023-03-15] MEDS ORDERED: Levofloxacin 500 MG Tablet ONE (21:41)
[2023-03-15 21:54] VITALS: PULSE 72; RESP 18; O2SAT 98
--- NOTE | 2023-03-16 08:39 | XRAY ---
Indication: Pain following fall 3 days ago. Multiple contiguous axis images obtained through the chest without contrast. Comparison: December 23, 2021 Lungs again demonstrate extensive diffuse pulmonary emphysema with minimal scattered fibrosis/scarring and peripheral left lower lobe calcified granuloma. Right lower lobe demonstrates new patchy airspace disease without effusion. Heart not enlarged. Aorta again mildly arteriosclerotic without aneurysm. Stable small left hilar calcified nodes and small hiatal hernia. There has been interval thyroidectomy. Bony thorax intact again with osteopenia and mild degenerative changes throughout the spine. Worsening T11 compression fracture with approximately 50-75% height loss without spinal canal/foraminal compromise. Limited upper abdomen again demonstrates splenic calcified granulomas. Impression: 1. New right lower lobe patchy airspace disease. 2. Worsening T11 compression fracture. 3. Again chronic findings including pulmonary emphysema, pulmonary fibrosis/scarring, arteriosclerotic disease, hiatal hernia, chronic bony findings, and old granulomatous disease.
== END 2023-03-15 21:54 | disposition home or self-care (01) ==
LOC: ED 19:22
DX: J18.9 Pneumonia, unspecified organism (principal); R07.9 Chest pain, unspecified; Z79.891 Long term (current) use of opiate analgesic; Z79.899 Other long term (current) drug therapy; Z28.310 Unvaccinated for COVID-19
CPT/HCPCS: 36415; 71250; 84484; 93005; 96372; 99284; J2270; J2930; Q0162; A9270-GY